=== PATIENT | male | born 1955 | race Two or more races ===

== ENCOUNTER 2020-01-27 04:34 | Day surgery (SDC) | payer OTHER ==
[2020-01-26 10:15] VITALS: BMI 33.5
[~2020-01-27 04:34] MED LIST: LIDOCAINE HCL 1%, 10 MG/ML (20ML VIAL) ID ONE
[2020-01-27 11:00] LABS: HEMATOCRIT 41.4 % (35.4-49); HEMOGLOBIN 13.9 GM/dL (11.7-16.9); MCH 28.8 pg (25.7-33.7); MCHC 33.5 g/dl (32.0-35.9); MEAN CELL VOLUME 85.9 fl (80-96); MEAN PLT VOLUME 7.9 fl (7.5-11.1); PLATELET COUNT 370 K/MM3 (134-434); RBC 4.82 M/mm3 (4.00-5.60); RDW 14.3 % (11.9-15.9); WHITE BLOOD COUNT 8.5 K/mm3 (4.0-10.0)
[2020-01-27 11:08] LABS: INR 0.93 (0.83-1.09)
[2020-01-27 11:33] LABS: ALBUMIN 3.8 g/dl (3.4-5.0); BILIRUBIN,TOTAL 0.6 mg/dL (0.2-1); BLOOD UREA NITROGEN 10.4 mg/dL (7-18); CALCIUM 9.1 mg/dL (8.5-10.1); CREATININE 0.9 mg/dL (0.55-1.3); POTASSIUM 4.4 mmol/L (3.5-5.1); TOT PROT 7.2 g/dl (6.4-8.2)
[2020-01-27] MEDS ORDERED: LIDOCAINE HCL 1%, 10 MG/ML (20ML VIAL) ONE (12:51)
[2020-01-27] MEDS ORDERED: HEPARIN NA (PORCINE) 5,000 UNITS/ML 1ML VIAL ONE (12:51)
[2020-01-27] MEDS ORDERED: MIDAZOLAM HCL 2 MG/2 ML SINGLE DOSE VIAL ONE ×2 (13:42)
[2020-01-27] MEDS ORDERED: PROPOFOL 20 ML ONE ×5 (13:42)
[2020-01-27] MEDS ORDERED: ceFAZolin SODIUM 1 GM VIAL IVPB ONE (13:47)
[2020-01-27] MEDS ORDERED: LIDOCAINE HCL 1%, 10 MG/ML (20ML VIAL) ID ONE (13:53)
[2020-01-27] MEDS ORDERED: HEPARIN NA (PORCINE) 5,000 UNITS/ML 1ML VIAL SQ ONE (13:57)
--- NOTE | 2020-01-27 14:45 | HP ---
Admitting History and Physical - Admission Chief Complaint: left lower extremity claudication 1 block History Source: Patient Limitations to Obtaining History: No Limitations - Smoking History Smoking history: Former smoker Have you smoked in the past 12 months: No If you are a former smoker, when did you quit?: 2016 - Alcohol/Substance Use Hx Alcohol Use: Yes (0-2/monthly) Home Medications - Allergies Allergies/Adverse Reactions: Allergies Allergy/AdvReac Type Severity Reaction Status Date / Time No Known Allergies Allergy Verified 01/27/20 11:38 - Home Medications Home Medications: Ambulatory Orders Folic Acid 1 mg PO DAILY 04/19/19 Insulin Lispro [Admelog] 0 - 16 mg SQ TIDCM PRN 04/19/19 Liraglutide [Victoza -] 18 units SQ DAILY 04/19/19 Metformin HCl [Glucophage] 500 mg PO BID 04/19/19 Pravastatin Sodium [Pravachol -] 80 mg PO DAILY 04/19/19 Tamsulosin HCl 0.4 mg PO HS 04/19/19 Budesonide/Formeterol Fumarate [SYMBICORT 160/4.5mcg -] 1 inh PO BID 09/07/19 Ezetimibe 10 mg PO DAILY 09/07/19 Insulin Glargine,Hum.rec.anlog [Basaglar Kwikpen U-100] 68 unit SQ HS 01/27/20 Review of Systems - Review of Systems Constitutional: reports: No Symptoms Eyes: reports: No Symptoms HENT: reports: No Symptoms Neck: reports: No Symptoms Cardiovascular: reports: No Symptoms Respiratory: reports: No Symptoms Gastrointestinal: reports: No Symptoms Genitourinary: reports: No Symptoms Breasts: reports: No Symptoms Reported Musculoskeletal: reports: No Symptoms Integumentary: reports: No Symptoms Neurological: reports: No Symptoms Endocrine: reports: No Symptoms Hematology/Lymphatic: reports: No Symptoms Psychiatric: reports: No Symptoms Physical Examination Vital Signs: Vital Signs Temperature 97.7 F 01/27/20 11:37 Pulse Rate 92 H 01/27/20 11:37 Respiratory Rate 01/27/20 11:37 Blood Pressure 123/77 01/27/20 11:37 O2 Sat by Pulse Oximetry (%) 99 01/27/20 11:37 Constitutional: Yes: Well Nourished, No Distress, Calm Eyes: Yes: WNL, Conjunctiva Clear, EOM Intact HENT: Yes: WNL, Atraumatic, Normocephalic Neck: Yes: WNL, Supple, Trachea Midline Cardiovascular: Yes: WNL, Regular Rate and Rhythm Respiratory: Yes: WNL, Regular, CTA Bilaterally Gastrointestinal: Yes: WNL, Normal Bowel Sounds Musculoskeletal: Yes: WNL Extremities: Yes: WNL Edema: No Peripheral Pulses WNL: No Integumentary: Yes: WNL Neurological: Yes: WNL, Alert, Oriented ...Motor Strength: WNL Psychiatric: Yes: WNL Labs: CBC, BMP 01/27/20 10:20 01/27/20 10:20 Problem List - Problems (1) Left leg claudication Assessment/Plan: for left lower extremity angiogram today Gio Walters DO Problems reviewed: Yes Code(s): I73.9 - PERIPHERAL VASCULAR DISEASE, UNSPECIFIED
[2020-01-27] MEDS ORDERED: oxyCODONE HCL 5 MG TABLET PO PRN (14:47)
[2020-01-27] MEDS ORDERED: ONDANSETRON 4 MG/2 ML VIAL IVPUSH PRN (14:47)
[2020-01-27] MEDS ORDERED: PROMETHAZINE HCL 25 MG/1 ML VIAL IVPB PRN (14:47)
--- NOTE | 2020-01-27 14:47 | OP ---
Operative Note - Note: Operative Date: 01/27/20 Pre-Operative Diagnosis: Left lower extremtiy claudication Operation: Aortogram, LLE angiogram, SFA atherectomy, SFA angioplasty , SFA stent placement Findings: SFA stenosis 80 percent adductor canal Post-Operative Diagnosis: Same as Pre-op Surgeon: Gio Walters Anesthesia: MAC Estimated Blood Loss (mls): 50 Operative Report Dictated: Yes
[2020-01-27] MEDS ORDERED: CLOPIDOGREL BISULFATE 75 MG TABLET (FP) PO ONE (14:48)
[2020-01-27] MEDS ORDERED: CLOPIDOGREL BISULFATE 75 MG TABLET (FP) ONE (15:14)
[2020-01-27 16:21] VITALS: TEMP 96.9
[2020-01-27 17:14] VITALS: BP 152/94; PULSE 92
--- NOTE | 2020-02-08 10:48 | OP ---
DATE OF OPERATION: 01/27/2020 PREOPERATIVE DIAGNOSIS: Left lower extremity claudication. POSTOPERATIVE DIAGNOSIS: Left lower extremity claudication. PROCEDURE: Aortogram, left lower extremity angiogram, superficial femoral artery atherectomy, superficial femoral artery angioplasty, superficial femoral artery stent placement. FINDINGS: SFA stenosis 80% adductor canal. SURGEON: Gio Pena DO ANESTHESIA: MAC. BLOOD LOSS: 50 mL INDICATIONS: Patient is a 64-year-old male that is a current smoker and diabetic, comes in with left lower extremity claudication for less than 1 block. Patient went through cardiology and medical clearance in order to have an angiogram due to the fact that his preoperative ultrasound showed an 80% to 90% stenosis in the left lower extremity in the SFA. Patient was found to be COVID negative. Patient then came in to ambulatory surgery. Patient was consented for the procedure understanding all risks, benefits and alternatives. DESCRIPTION OF PROCEDURE: Then taken to the operating room. Once in the operating room, laid on the operating table in the supine manner. The area of the right and left groin was prepped and draped in a sterile surgical manner. We then injected 10 mL of lidocaine 1% over the right common femoral artery. We then used a micropuncture needle, punctured the right common femoral artery, and a micropuncture wire was inserted. Micropuncture sheath was inserted and a traditional 5-Vietnamese sheath was inserted. We then placed a 0.[address] the way up into the aorta followed by Omni Flush catheter. We then shot an aortogram by hand injection showing that the aorta and the iliac arteries were without any disease. We then used a 0.035 floppy wire, went up and over to the left common femoral artery and an Omni Flush catheter followed. We then shot an angiogram of the left lower extremity showing that the common femoral artery, the profunda and the SFA were patent. At the distal SFA at the adductor canal had an 80% to 90% stenosis for about 5 cm. Popliteal artery was patent and patient had 2-vessel runoff into the foot. At this point we placed a 0.035 stiff guidewire into the SFA. We removed our Omni Flush catheter, placed a 6 x 45 Crossover sheath. IV heparin 5000 units were administered to the patient. We then went ahead and used a Quick-Cross catheter and brought our wire down and through the stenosis. We then exchanged the wire for a VIPERWIRE. We then went ahead and performed a CSI orbital atherectomy of the SFA in the adductor canal on low, medium and high. Once completed, we shot an angiogram showing that the artery was more patent. We then went ahead and used a 5 x 8 Ultraverse balloon and performed angioplasty of the SFA, which thereafter completion angiogram showed that there was a dissection. We then went ahead and used a 6 x 8 LifeStent and placed it in the area. We ballooned the LifeStent in place using a 5 x 8 balloon. Completion angiogram now showed that the SFA was patent. There was good brisk flow. There were no signs of any dissection and the stent was patent and there was good runoff into the foot. At this point we brought our sheath up and over. StarClose device was successfully deployed in the right common femoral artery. Pressure was held for 5 minutes after which there was no more bleeding. The area was wet and dried and Dermabond was placed. The patient tolerated the procedure. There were no complications. Patient transferred to PACU in stable condition. GIO PENA DO [id number]
== END 2020-01-27 17:35 | disposition home or self-care (01) ==
LOC: JASU-SURG 04:34
PROVIDERS: ATTEND Surgery Vascular Surgery
PROC: 047L3DZ Dilation of Left Femoral Artery with Intraluminal Device, Percutaneous Approach (ICD-10-PCS; principal; 2020-01-27 12:30)
DX: I70.212 Atherosclerosis of native arteries of extremities with intermittent claudication, left leg (principal); E11.9 Type 2 diabetes mellitus without complications; Z79.4 Long term (current) use of insulin; Z79.84 Long term (current) use of oral hypoglycemic drugs; E66.9 Obesity, unspecified
CPT/HCPCS: 37227; C1877; 36415; 76000-TC-FY; 80053; 85027; 85610; 94760; J1644

== ENCOUNTER 2021-05-01 08:56 | Day surgery (SDC) | payer OTHER ==
[2021-05-01] MEDS ORDERED: IRON SUCROSE INJECTION 300 MG in SODIUM CHLORIDE 250 ML IVPB ONE (10:00)
[2021-05-01 12:11] LABS: HEMATOCRIT 32.2 % (35.4-49); HEMOGLOBIN 10.3 GM/dL (11.7-16.9); LYMPH % 14.3 % (8-40); MCH 24.6 pg (25.7-33.7); MCHC 31.9 g/dl (32.0-35.9); MEAN PLT VOLUME 7.6 fl (7.5-11.1); MONO % 8.3 % (3.8-10.2); NEUT % 74.4 % (42.8-82.8); PLATELET COUNT 457 10^3/uL (134-434); RBC 4.18 M/mm3 (4.00-5.60); RDW 31.6 % (11.9-15.9)
[2021-05-01 12:33] LABS: ALBUMIN 3.5 g/dl (3.4-5.0); BLOOD UREA NITROGEN 10.7 mg/dL (7-18); CALCIUM 9.4 mg/dL (8.5-10.1)
[2021-05-01 12:36] LABS: BILIRUBIN,DIRECT 0.1 mg/dL (0.0-0.2); CREATININE 0.9 mg/dL (0.55-1.3)
[2021-05-01 12:38] LABS: BILIRUBIN,TOTAL 0.4 mg/dL (0.2-1)
[2021-05-01 15:56] VITALS: TEMP 98.4
[2021-05-01 16:03] VITALS: BP 130/69; PULSE 89
== END 2021-05-01 13:50 | disposition home or self-care (01) ==
LOC: JONCNONCHE 08:56
PROVIDERS: ATTEND Internal Medicine Hematology & Oncology
PROC: 3E033GC Introduction of Other Therapeutic Substance into Peripheral Vein, Percutaneous Approach (ICD-10-PCS; principal; 2021-05-01)
DX: D50.9 Iron deficiency anemia, unspecified (principal)
CPT/HCPCS: 36415; 80048; 80076; 85025; 86850; 86900; 86901; 96365; J1756

== ENCOUNTER 2021-05-07 07:41 | Day surgery (SDC) | payer OTHER ==
[2021-05-07] MEDS ORDERED: IRON SUCROSE INJECTION 300 MG in SODIUM CHLORIDE 250 ML IVPB ONE (11:00)
[2021-05-07 11:43] LABS: BASO % 0.8 % (0-2.0); EOS % 2.2 % (0-4.5); HEMATOCRIT 32.8 % (35.4-49); HEMOGLOBIN 10.5 GM/dL (11.7-16.9); LYMPH % 14.6 % (8-40); MCH 25.4 pg (25.7-33.7); MEAN CELL VOLUME 79.2 fl (80-96); MEAN PLT VOLUME 7.4 fl (7.5-11.1); MONO % 6.8 % (3.8-10.2); NEUT % 75.6 % (42.8-82.8); PLATELET COUNT 525 10^3/uL (134-434); RBC 4.14 M/mm3 (4.00-5.60); RDW 31.8 % (11.9-15.9)
[2021-05-07 17:27] VITALS: TEMP 98.3
[2021-05-08 09:08] VITALS: BP 129/63; PULSE 82
== END 2021-05-07 13:00 | disposition home or self-care (01) ==
LOC: JONCNONCHE 07:41
PROVIDERS: ATTEND Internal Medicine Hematology & Oncology
PROC: 3E033GC Introduction of Other Therapeutic Substance into Peripheral Vein, Percutaneous Approach (ICD-10-PCS; principal; 2021-05-07)
DX: D50.9 Iron deficiency anemia, unspecified (principal)
CPT/HCPCS: 36415; 85025; 96365; J1756

== ENCOUNTER 2021-05-14 07:31 | Day surgery (SDC) | payer OTHER ==
[2021-05-14 11:42] LABS: BASO % 0.7 % (0-2.0); EOS % 1.7 % (0-4.5); HEMATOCRIT 30.4 % (35.4-49); LYMPH % 12.3 % (8-40); MCH 26.5 pg (25.7-33.7); MCHC 32.8 g/dl (32.0-35.9); MEAN CELL VOLUME 80.9 fl (80-96); MEAN PLT VOLUME 7.6 fl (7.5-11.1); MONO % 6.1 % (3.8-10.2); NEUT % 79.2 % (42.8-82.8); PLATELET COUNT 490 10^3/uL (134-434); RBC 3.76 M/mm3 (4.00-5.60); RDW 30.4 % (11.9-15.9); WHITE BLOOD COUNT 9.6 K/mm3 (4.0-10.0)
[2021-05-14] MEDS ORDERED: IRON SUCROSE INJECTION 300 MG in SODIUM CHLORIDE 250 ML IVPB ONE (12:00)
[2021-05-14 16:33] VITALS: TEMP 97.8
[2021-05-14 16:37] VITALS: BP 142/70; PULSE 84
== END 2021-05-14 13:15 | disposition home or self-care (01) ==
LOC: JONCNONCHE 07:31
PROVIDERS: ATTEND Internal Medicine Hematology & Oncology
PROC: 3E033GC Introduction of Other Therapeutic Substance into Peripheral Vein, Percutaneous Approach (ICD-10-PCS; principal; 2021-05-14)
DX: D50.9 Iron deficiency anemia, unspecified (principal)
CPT/HCPCS: 36415; 85025; 96365; J1756

== ENCOUNTER 2021-05-21 07:41 | Day surgery (SDC) | payer OTHER ==
[2021-05-21 11:41] LABS: BASO % 0.8 % (0-2.0); HEMATOCRIT 30.1 % (35.4-49); LYMPH % 17.3 % (8-40); MCH 27.3 pg (25.7-33.7); MCHC 33.1 g/dl (32.0-35.9); MEAN CELL VOLUME 82.5 fl (80-96); MEAN PLT VOLUME 7.3 fl (7.5-11.1); MONO % 6.9 % (3.8-10.2); PLATELET COUNT 563 10^3/uL (134-434); RBC 3.66 M/mm3 (4.00-5.60); RDW 29.3 % (11.9-15.9); WHITE BLOOD COUNT 8.5 K/mm3 (4.0-10.0)
[2021-05-21] MEDS ORDERED: IRON SUCROSE INJECTION 300 MG in SODIUM CHLORIDE 250 ML IVPB ONE (12:00)
[2021-05-21 12:01] LABS: ALBUMIN 3.2 g/dl (3.4-5.0); BLOOD UREA NITROGEN 11.4 mg/dL (7-18); CALCIUM 9.1 mg/dL (8.5-10.1)
[2021-05-21 12:04] LABS: CREATININE 0.9 mg/dL (0.55-1.3)
[2021-05-21 12:05] LABS: BILIRUBIN,DIRECT 0.1 mg/dL (0.0-0.2)
[2021-05-21 12:06] LABS: BILIRUBIN,TOTAL 0.3 mg/dL (0.2-1); TOT PROT 6.9 g/dl (6.4-8.2)
[2021-05-21 15:21] VITALS: TEMP 98.4
[2021-05-21 15:22] VITALS: BP 126/74; PULSE 80
== END 2021-05-21 13:15 | disposition home or self-care (01) ==
LOC: JONCNONCHE 07:41
PROVIDERS: ATTEND Internal Medicine Hematology & Oncology
PROC: 3E033GC Introduction of Other Therapeutic Substance into Peripheral Vein, Percutaneous Approach (ICD-10-PCS; principal; 2021-05-21)
DX: D50.9 Iron deficiency anemia, unspecified (principal)
CPT/HCPCS: 36415; 80048; 80076; 82728; 83540; 83550; 83735; 85025; 96365; J1756

== ENCOUNTER 2021-05-28 07:03 | Day surgery (SDC) | payer OTHER ==
[2021-05-28 11:14] LABS: BASO % 0.7 % (0-2.0); EOS % 2.4 % (0-4.5); HEMATOCRIT 30.2 % (35.4-49); HEMOGLOBIN 10.1 GM/dL (11.7-16.9); MCH 28.4 pg (25.7-33.7); MCHC 33.4 g/dl (32.0-35.9); MEAN CELL VOLUME 84.9 fl (80-96); MEAN PLT VOLUME 7.1 fl (7.5-11.1); NEUT % 72.9 % (42.8-82.8); PLATELET COUNT 482 10^3/uL (134-434); RBC 3.56 M/mm3 (4.00-5.60); RDW 29.4 % (11.9-15.9); WHITE BLOOD COUNT 8.9 K/mm3 (4.0-10.0)
[2021-05-28] MEDS ORDERED: IRON SUCROSE INJECTION 300 MG in SODIUM CHLORIDE 250 ML IVPB ONE (12:00)
[2021-05-28 13:54] LABS: ANISOCYTOSIS 2+; MACROCYTOSIS 0; OVALOCYTE 1+; PLATELET ESTIMATE NORMAL; TEAR DROP CELLS 1+
[2021-05-28 18:01] VITALS: BP 137/66; PULSE 83; TEMP 98.1
== END 2021-05-28 13:40 | disposition home or self-care (01) ==
LOC: JONCCHEMO 07:03
PROVIDERS: ATTEND Internal Medicine Hematology & Oncology
PROC: 3E033GC Introduction of Other Therapeutic Substance into Peripheral Vein, Percutaneous Approach (ICD-10-PCS; principal; 2021-05-28)
DX: D50.9 Iron deficiency anemia, unspecified (principal)
CPT/HCPCS: 36415; 85025; 96365; J1756

== ENCOUNTER 2021-06-06 07:08 | Day surgery (SDC) | payer OTHER ==
[2021-06-06] MEDS ORDERED: IRON SUCROSE INJECTION 300 MG in SODIUM CHLORIDE 250 ML IVPB ONE (12:00)
[2021-06-06 17:22] VITALS: TEMP 97.3
[2021-06-06 17:23] VITALS: BP 128/56; PULSE 72
== END 2021-06-06 13:30 | disposition home or self-care (01) ==
LOC: JONCNONCHE 07:08
PROVIDERS: ATTEND Internal Medicine Hematology & Oncology
DX: D50.9 Iron deficiency anemia, unspecified (principal)
CPT/HCPCS: 96365; J1756

== ENCOUNTER 2021-06-13 07:32 | Day surgery (SDC) | payer OTHER ==
[2021-06-13] MEDS ORDERED: HYDROCORTISONE SOD SUCCINATE 100 MG/2 ML VIAL IVPUSH PRN (08:23)
[2021-06-13] MEDS ORDERED: diphenhydrAMINE HCL 50 MG CAPSULE PO PRN (08:23)
[2021-06-13] MEDS ORDERED: IRON SUCROSE INJECTION 300 MG in SODIUM CHLORIDE 250 ML IVPB ONE (09:00)
[2021-06-13 16:44] VITALS: BP 128/68; PULSE 96; TEMP 98
== END 2021-06-13 16:45 | disposition home or self-care (01) ==
LOC: JONCNONCHE 07:32
PROVIDERS: ATTEND Internal Medicine Hematology & Oncology
PROC: 3E033GC Introduction of Other Therapeutic Substance into Peripheral Vein, Percutaneous Approach (ICD-10-PCS; principal; 2021-06-13)
DX: D50.9 Iron deficiency anemia, unspecified (principal)
CPT/HCPCS: 96365; J1756

== ENCOUNTER 2021-09-03 07:10 | Day surgery (SDC) | payer OTHER ==
[2021-09-03] MEDS ORDERED: IRON SUCROSE INJECTION 300 MG in SODIUM CHLORIDE 250 ML IVPB ONE (10:00)
[2021-09-03 15:26] VITALS: TEMP 98.1
[2021-09-03 15:33] VITALS: BP 114/79; PULSE 97
== END 2021-09-03 12:50 | disposition home or self-care (01) ==
LOC: JONCNONCHE 07:10
PROVIDERS: ATTEND Internal Medicine Hematology & Oncology
PROC: 3E033GC Introduction of Other Therapeutic Substance into Peripheral Vein, Percutaneous Approach (ICD-10-PCS; principal; 2021-09-03)
DX: D50.9 Iron deficiency anemia, unspecified (principal)
CPT/HCPCS: 96365; J1756

== ENCOUNTER 2021-09-10 07:23 | Day surgery (SDC) | payer OTHER ==
[2021-09-10] MEDS ORDERED: IRON SUCROSE INJECTION 300 MG in SODIUM CHLORIDE 250 ML IVPB ONE (10:00)
[2021-09-10 14:36] VITALS: TEMP 98
[2021-09-10 14:42] VITALS: BP 131/65; PULSE 79
== END 2021-09-10 13:00 | disposition home or self-care (01) ==
LOC: JONCNONCHE 07:23
PROVIDERS: ATTEND Internal Medicine Hematology & Oncology
PROC: 3E033GC Introduction of Other Therapeutic Substance into Peripheral Vein, Percutaneous Approach (ICD-10-PCS; principal; 2021-09-10)
DX: D50.9 Iron deficiency anemia, unspecified (principal)
CPT/HCPCS: 96365; J1756

== ENCOUNTER 2021-09-17 07:24 | Day surgery (SDC) | payer OTHER ==
[2021-09-17] MEDS ORDERED: IRON SUCROSE INJECTION 300 MG in SODIUM CHLORIDE 250 ML IVPB ONE (10:00)
[2021-09-17 15:54] VITALS: BP 146/72; PULSE 93; TEMP 98.5
== END 2021-09-17 12:55 | disposition home or self-care (01) ==
LOC: JONCNONCHE 07:24
PROVIDERS: ATTEND Internal Medicine Hematology & Oncology
PROC: 3E033GC Introduction of Other Therapeutic Substance into Peripheral Vein, Percutaneous Approach (ICD-10-PCS; principal; 2021-09-17)
DX: D50.9 Iron deficiency anemia, unspecified (principal)
CPT/HCPCS: 96365; J1756

== ENCOUNTER 2021-09-24 08:46 | Day surgery (SDC) | payer OTHER ==
[2021-09-24] MEDS ORDERED: IRON SUCROSE INJECTION 300 MG in SODIUM CHLORIDE 250 ML IVPB ONE (10:00)
[2021-09-24 11:19] VITALS: TEMP 98.2
[2021-09-24 12:25] VITALS: BP 132/66; PULSE 75
== END 2021-09-24 12:25 | disposition home or self-care (01) ==
LOC: JONCNONCHE 08:46
PROVIDERS: ATTEND Internal Medicine Hematology & Oncology
PROC: 3E033GC Introduction of Other Therapeutic Substance into Peripheral Vein, Percutaneous Approach (ICD-10-PCS; principal; 2021-09-24)
DX: D50.9 Iron deficiency anemia, unspecified (principal)
CPT/HCPCS: 96365; J1756

== ENCOUNTER 2023-05-30 11:14 | Day surgery (SDC) | payer OTHER ==
[~2023-05-30 11:14] MED LIST changes: +IRON SUCROSE INJECTION 300 MG in SODIUM CHLORIDE 250 ML IVPB ONE; -LIDOCAINE HCL 1%, 10 MG/ML (20ML VIAL) ID ONE
[2023-05-30 17:25] VITALS: TEMP 98.4
[2023-05-30 17:27] VITALS: BP 133/58; PULSE 72; RESP 16
== END 2023-05-30 13:30 | disposition home or self-care (01) ==
LOC: JONCCHEMO 11:14 → J7W 11:15 → JONCCHEMO 13:30
PROVIDERS: ATTEND Internal Medicine Hematology & Oncology
PROC: 3E033GC Introduction of Other Therapeutic Substance into Peripheral Vein, Percutaneous Approach (ICD-10-PCS; principal; 2023-05-30)
DX: E61.1 Iron deficiency (principal)
CPT/HCPCS: 96365; J1756

== ENCOUNTER 2023-06-06 11:00 | Day surgery (SDC) | payer OTHER ==
[2023-06-06 16:07] VITALS: BP 139/57; PULSE 74; RESP 20; TEMP 97.6
== END 2023-06-06 16:07 | disposition home or self-care (01) ==
LOC: JONCNONCHE 11:00 → J7W 11:15 → JONCNONCHE 16:07
PROVIDERS: ATTEND Internal Medicine Hematology & Oncology
PROC: 3E033GC Introduction of Other Therapeutic Substance into Peripheral Vein, Percutaneous Approach (ICD-10-PCS; principal; 2023-06-06)
DX: D50.9 Iron deficiency anemia, unspecified (principal)
CPT/HCPCS: 96365; J1756

== ENCOUNTER 2023-06-13 11:20 | Day surgery (SDC) | payer OTHER ==
[2023-06-13 14:53] VITALS: RESP 18; TEMP 99.2
[2023-06-13 14:55] VITALS: BP 138/64; PULSE 88
== END 2023-06-13 14:00 | disposition home or self-care (01) ==
LOC: J7W 11:20 → JONCNONCHE 11:20
PROVIDERS: ATTEND Internal Medicine Hematology & Oncology
PROC: 3E033GC Introduction of Other Therapeutic Substance into Peripheral Vein, Percutaneous Approach (ICD-10-PCS; principal; 2023-06-13)
DX: D50.9 Iron deficiency anemia, unspecified (principal)
CPT/HCPCS: 96365; J1756

== ENCOUNTER 2023-06-20 11:29 | Day surgery (SDC) | payer OTHER ==
[2023-06-20] MEDS: IRON SUCROSE INJECTION 300 MG in SODIUM CHLORIDE 250 ML IVPB ONE (11:58)
[2023-06-20 16:17] VITALS: BP 118/63; PULSE 18; RESP 90; TEMP 98.6
== END 2023-06-20 14:00 | disposition home or self-care (01) ==
LOC: JONCNONCHE 11:29 → J7W 11:29 → JONCNONCHE 14:00
PROVIDERS: ATTEND Internal Medicine Hematology & Oncology
PROC: 3E033GC Introduction of Other Therapeutic Substance into Peripheral Vein, Percutaneous Approach (ICD-10-PCS; principal; 2023-06-20)
DX: D50.9 Iron deficiency anemia, unspecified (principal)
CPT/HCPCS: 96365; J1756

== ENCOUNTER 2023-08-25 10:41 | Day surgery (SDC) | payer OTHER ==
[2023-08-25] MEDS: IRON SUCROSE INJECTION 300 MG in SODIUM CHLORIDE 250 ML IVPB ONE (11:09)
[2023-08-25 18:50] VITALS: BP 130/60; PULSE 83; RESP 18; TEMP 97.9
== END 2023-08-25 13:10 | disposition home or self-care (01) ==
LOC: JONCNONCHE 10:41 → J7W 10:42 → JONCNONCHE 13:10
PROVIDERS: ATTEND Internal Medicine Hematology & Oncology
PROC: 3E033GC Introduction of Other Therapeutic Substance into Peripheral Vein, Percutaneous Approach (ICD-10-PCS; principal; 2023-08-25)
DX: D50.9 Iron deficiency anemia, unspecified (principal)
CPT/HCPCS: 96365; J1756

== ENCOUNTER 2023-09-01 10:00 | Day surgery (SDC) | payer OTHER ==
[2023-09-01] MEDS: IRON SUCROSE INJECTION 300 MG in SODIUM CHLORIDE 250 ML IVPB ONE (11:12)
[2023-09-01 15:41] VITALS: RESP 18; TEMP 97.5
[2023-09-01 15:44] VITALS: BP 147/75; PULSE 80
== END 2023-09-01 13:30 | disposition home or self-care (01) ==
LOC: JONCNONCHE 10:00 → J7W 10:30 → JONCNONCHE 13:30
PROVIDERS: ATTEND Internal Medicine Hematology & Oncology
PROC: 3E033GC Introduction of Other Therapeutic Substance into Peripheral Vein, Percutaneous Approach (ICD-10-PCS; principal; 2023-09-01)
DX: D50.9 Iron deficiency anemia, unspecified (principal)
CPT/HCPCS: 96365; J1756

== ENCOUNTER 2023-09-08 11:10 | Day surgery (SDC) | payer OTHER ==
[2023-09-08] MEDS: IRON SUCROSE INJECTION 300 MG in SODIUM CHLORIDE 250 ML IVPB ONE (11:20)
[2023-09-08 13:51] VITALS: RESP 20; TEMP 97.8
[2023-09-08 13:59] VITALS: BP 123/75; PULSE 73
== END 2023-09-08 13:15 | disposition home or self-care (01) ==
LOC: JONCNONCHE 11:10 → J7W 11:10 → JONCNONCHE 13:15
PROVIDERS: ATTEND Internal Medicine Hematology & Oncology
PROC: 3E033GC Introduction of Other Therapeutic Substance into Peripheral Vein, Percutaneous Approach (ICD-10-PCS; principal; 2023-09-08)
DX: D50.9 Iron deficiency anemia, unspecified (principal)
CPT/HCPCS: 96365; J1756

== ENCOUNTER 2023-09-15 11:20 | Day surgery (SDC) | payer OTHER ==
[2023-09-15] MEDS: IRON SUCROSE INJECTION 300 MG in SODIUM CHLORIDE 250 ML IVPB ONE (11:45)
[2023-09-15 16:06] VITALS: BP 147/59; PULSE 89; RESP 18; TEMP 97.8
== END 2023-09-15 13:30 | disposition home or self-care (01) ==
LOC: JONCNONCHE 11:20 → J7W 11:30 → JONCNONCHE 13:30
PROVIDERS: ATTEND Internal Medicine Hematology & Oncology
PROC: 3E033GC Introduction of Other Therapeutic Substance into Peripheral Vein, Percutaneous Approach (ICD-10-PCS; principal; 2023-09-15)
DX: D50.9 Iron deficiency anemia, unspecified (principal)
CPT/HCPCS: 96365; J1756

== ENCOUNTER 2025-01-20 13:15 | Emergency (ER) | payer OTHER ==
[2025-01-20 13:22] VITALS: TEMP 98; BMI 34.8
[2025-01-20] MEDS ORDERED: methylPREDNISolone NA SUCC 125 MG/2 ML VIAL ONE (13:31)
[2025-01-20] MEDS ORDERED: FAMOTIDINE 10 MG/ML VIAL IVPB ONE (13:32)
[2025-01-20] MEDS ORDERED: FAMOTIDINE 20 MG/50 ML IVPB 20 MG/50 ML MG IVPB ONE (13:32)
[2025-01-20] MEDS ORDERED: EPINEPHrine 1:1000 P/F - 1 MG/ML AMP ONE (13:43)
[2025-01-20] MEDS: FAMOTIDINE 20 MG/50 ML IVPB 20 MG/50 ML MG IVPB ONE (13:49)
[2025-01-20] MEDS ORDERED: methylPREDNISolone NA SUCC 125 MG/2 ML VIAL IVPUSH ONE (13:57)
[2025-01-20] MEDS: EPINEPHrine 1:1,000 0.3 MG/0.3 ML SYR IM ONE ×3 (14:00→14:17)
[2025-01-20] MEDS ORDERED: methylPREDNISolone NA SUCC 125 MG/2 ML VIAL IVPUSH SCH (14:02)
[2025-01-20 14:13] LABS: ABSOLUTE IMMATURE GRANULOCYTES 0.54 x10^3/uL (0.0-0.031); BASOPHILS # 0.05 x10^3/uL (0.01-0.08); EOSINOPHIL % 0.2 % (0.8-7.0); EOSINOPHILS # 0.03 x10^3/uL (0.04-0.54); MCHC 31.6 g/dl (32.3-36.5); MEAN CELL VOLUME 87.2 fl (79.0-92.2); MEAN PLT VOLUME 9.8 fl (9.4-12.4); MONOCYTE # 0.44 x10^3/uL (0.30-0.82); MONOCYTE % 2.7 % (5.3-12.2); RDW 18.6 % (12.2-16.4)
[2025-01-20 14:34] LABS: CO2 28.0 mmol/L (21-32); GLUCOSE,RANDOM 238.0 mg/dL (74-106)
[2025-01-20 14:37] LABS: CREATININE 1.2 mg/dL (0.55-1.3); SGOT/AST 32.0 U/L (15-37); SGPT/ALT 40.0 U/L (13-61)
[2025-01-20 14:38] LABS: TOT PROT 5.8 g/dl (6.4-8.2)
[2025-01-20 14:40] LABS: ALK PHOS 56.0 U/L (45-117)
[2025-01-20 16:21] VITALS: BP 104/65; PULSE 106; RESP 18
[2025-01-20] MEDS ORDERED: diphenhydrAMINE HCL 25 MG CAPSULE (FP) PO ONE (18:32)
[2025-01-21] MEDS ORDERED: methylPREDNISolone NA SUCC 125 MG/2 ML VIAL IVPUSH SCH (10:00)
== END 2025-01-20 19:02 | disposition home or self-care (01) ==
LOC: JER 13:15
PROC: 3E033GC Introduction of Other Therapeutic Substance into Peripheral Vein, Percutaneous Approach (ICD-10-PCS; principal; 2025-01-20)
PROC: 3E033GC Introduction of Other Therapeutic Substance into Peripheral Vein, Percutaneous Approach (ICD-10-PCS; 2025-01-20)
PROC: 3E023GC Introduction of Other Therapeutic Substance into Muscle, Percutaneous Approach (ICD-10-PCS; 2025-01-20)
PROC: 3E023GC Introduction of Other Therapeutic Substance into Muscle, Percutaneous Approach (ICD-10-PCS; 2025-01-20)
DX: R21 Rash and other nonspecific skin eruption (principal); L29.9 Pruritus, unspecified; K14.8 Other diseases of tongue; J39.2 Other diseases of pharynx; R47.81 Slurred speech; R00.0 Tachycardia, unspecified; T88.6XXA Anaphylactic reaction due to adverse effect of correct drug or medicament properly administered, initial encounter; T36.1X5A Adverse effect of cephalosporins and other beta-lactam antibiotics, initial encounter
CPT/HCPCS: 36415; 80053; 82962; 84484; 85025; 93005; 93010; 99291; J0169